=== PATIENT | male | born 2000 | race Caucasian/White ===

== ENCOUNTER 2019-06-23 23:48 | Emergency (ER) | payer OTHER ==
--- NOTE | 2019-06-24 00:18 | PDOC ---
History of Present Illness - General Chief Complaint: Pain Stated Complaint: BILAT HAND PAIN/SWELLING Time Seen by Provider: 06/24/19 00:02 - History of Present Illness Initial Comments: This 19-year-old man with a history of ADD/depression presents with history of bilateral hand injury. This evening, the patient states that he was angry about something and struck a wall with both fists. He believes he impacted the left hand against the "stud" in the wall; since then, he has had pain and swelling in bilateral hands with predominance of pain in the left middle finger and right middle/ring fingers. No other injury sustained. The patient has been applying ice to the hands since the injury. He has not taken any medication for the pain (states that he rarely takes over- the-counter medication case and because he is taking prescription meds) Past History - Past Medical History Allergies/Adverse Reactions: Allergies Allergy/AdvReac Type Severity Reaction Status Date / Time No Known Allergies Allergy Verified 03/09/13 21:20 Home Medications: Ambulatory Orders Fluoxetine PO DAILY 03/09/13 Naproxen [Naprosyn] 375 mg PO BID PRN #14 tablet 03/09/13 Unobtainable Home Med List 0 dose .ROUTE UTDICT 03/09/13 Asthma: No COPD: No Diabetes: No HTN: No Psychiatric Problems: Yes (DEPRESSION/ADD) - Immunization History Immunization Up to Date: Yes - Suicide/Smoking/Psychosocial Hx Smoking Status: No Smoking History: Unknown if ever smoked Have you smoked in the past 12 months: No Number of Cigarettes Smoked Daily: 0 Information on smoking cessation initiated: No Hx Alcohol Use: No Drug/Substance Use Hx: No Review of Systems - Review of Systems Able to Perform ROS?: Yes Comments:: 12 point review of systems is negative except for what is noted in the history of present illness *Physical Exam - Vital Signs Last Vital Signs Temp Pulse Resp BP Pulse Ox 98.5 F 68 14 124/76 99 06/23/19 23:59 06/23/19 23:59 06/23/19 23:59 06/23/19 23:59 06/23/19 23:59 - Physical Exam Comments: GENERAL: Young adult male, alert and oriented 3, no acute distress HEAD: Normal with no signs of trauma. EYES: PERRLA, EOMI, sclera anicteric, conjunctiva clear. EXTREMITIES: Bilateral edema of the dorsum of hand and proximal fingers ( excluding thumbs); no deformity or ecchymosis present . Maximal tenderness of the proximal portion of the left middle finger and the right middle and ring fingers Pain reproduced with passive and active range of motion at left middle/right middle and ring MCP and proximal phalanx Superficial nonbleeding abrasion between fourth and fifth MCP left hand Extremity exam otherwise normal NEUROLOGICAL: Cranial nerves II through XII grossly intact. Normal speech. No focal neurologic defici SKIN: Warm, Dry, normal turgor, no rashes or lesions noted. Medical Decision Making - Medical Decision Making Right and left hand x-rays performed. Preliminary interpretation by me: No evidence of fracture or dislocation in either hand. Abrasion cleansed and bacitracin ointment applied. Telfa dressing plus Tejinder wraps applied to bilateral hands. Patient will continue to elevate and ice hands as much as possible over the next 2 days. Tejinder wraps can be used during the day and removed at night for the next 2 days. Patient will return here or see his PMD if he has continued pain/swelling in the hands. *DC/Admit/Observation/Transfer Diagnosis at time of Disposition: Contusion of hand(s) Qualifiers: Encounter type: initial encounter Laterality: unspecified laterality Qualified Code(s): S60.229A - Contusion of unspecified hand, initial encounter - Discharge Dispostion Disposition: HOME Condition at time of disposition: Stable - Referrals - Patient Instructions Printed Discharge Instructions: DI for Contusion Additional Instructions: Elevate/ice to hand as much as possible over the next 2 days Tejinder wrap during the day for the next 2-3 days Neosporin/bacitracin to abrasions daily Follow-up with your general medical doctor within the next 3-4 days - Post Discharge Activity
[2019-06-24 00:23] VITALS: BP 124/76; PULSE 68; TEMP 98.5; BMI 28.7
== END 2019-06-24 01:00 | disposition home or self-care (01) ==
LOC: FER 23:48
DX: S60.229A Contusion of unspecified hand, initial encounter (principal); W22.01XA Walked into wall, initial encounter; Y93.89 Activity, other specified; Y92.89 Other specified places as the place of occurrence of the external cause; F32.9 Major depressive disorder, single episode, unspecified; F98.8 Other specified behavioral and emotional disorders with onset usually occurring in childhood and adolescence
CPT/HCPCS: 73130-TC-LT-FY; 73130-TC-RT-FY; 99283-25